=== PATIENT | male | born 1990 | race Caucasian/White ===

== ENCOUNTER 2021-07-26 16:32 | Inpatient (IN) | payer OTHER ==
[~2021-07-26] VITALS: Ht 180.3 cm; Wt 109.8 kg
[2021-07-26] MEDS ORDERED: normal saline 1000ML IV soln IVB ONE (16:55)
[2021-07-26] MEDS ORDERED: CefTRIAXone 2gm/D5W 50ml BAG 50 ML IV ONE (16:55)
[2021-07-26] MEDS ORDERED: morphine 4 MG/ML inj SYRINge IV ONE (16:55)
[2021-07-26] MEDS ORDERED: furosemide 10 MG/1 ML 10ml inj IV ONE (16:55)
[2021-07-26 17:39] LABS: BASOPHILS % (AUTO) 0.2 % (0-1); EOSINOPHILS % (AUTO) 0.2 % (0-6); HEMATOCRIT 22.3 % (42.0-52.0); HEMOGLOBIN 7.6 g/dl (14.0-17.9); LYMPHOCYTES % (AUTO) 7.4 % (21-51); MEAN CORPUSCULAR HEMOGLOBIN 33.6 PG (27.0-31.0); MEAN CORPUSCULAR VOLUME 98.6 FL (78-98); MEAN PLATELET VOLUME 7.5 FL (7.4-10.4); MONOCYTES # (AUTO) 2.3 X10'3 (0-0.9); MONOCYTES % (AUTO) 16.9 % (2-12); NEUTROPHILS # (AUTO) 10.4 X10'3 (1.8-7.7); NEUTROPHILS % (AUTO) 75.3 % (42-75); PLATELET COUNT 80 X10'3 (140-440); RED BLOOD COUNT 2.26 X10'6 (4.70-6.10); RED CELL DISTRIBUTION WIDTH 22.8 % (11.5-14.5); WHITE BLOOD COUNT 13.9 X10'3 (4.5-11.0)
[2021-07-26 17:59] LABS: LACTIC SEPSIS 2.9 MMOL/L (0.4-2.0)
[2021-07-26 18:16] LABS: ALANINE AMINOTRANSFERASE 50 U/L (12-78); ALBUMIN 2.2 G/DL (3.4-5.0); ALKALINE PHOSPHATASE 184 IU/L (46-116); ANION GAP 9 (8-16); ASPARTATE AMINO TRANSFERASE 97 U/L (10-37); BILIRUBIN,TOTAL 9.2 MG/DL (0.1-1.0); BLOOD UREA NITROGEN 24 MG/DL (7-18); BUN/CREATININE RATIO 20.3 (5.4-32.0); CHLORIDE 96 MMOL/L (99-107); CREATININE 1.18 MG/DL (0.60-1.10); POTASSIUM 4.7 MMOL/L (3.5-5.1); SODIUM 129 MMOL/L (135-145); TOTAL CARBON DIOXIDE 24.1 MMOL/L (24-32); eGFR 72 ML/MIN
[2021-07-26 18:22] LABS: ANISOCYTOSIS 3+; PLATELET ESTIMATE DECREASED; TOTAL CELLS COUNTED 100
[2021-07-26 18:24] LABS: ACANTHOCYTES 3+
[2021-07-26 18:25] LABS: ELLIPTOCYTES 2+; SCHISTOCYTES 1+; TEAR DROP CELLS FEW
[2021-07-26 18:39] LABS: ALBUMIN/GLOBULIN RATIO 0.6 (1.1-1.5); CALCIUM 8.2 MG/DL (8.5-10.1); TOTAL PROTEIN 5.9 G/DL (6.4-8.2)
[2021-07-26 18:40] LABS: GLUCOSE 102 MG/DL (70-104)
--- NOTE | 2021-07-26 20:05 | NUR ---
Consulted with Willem BARTH regarding fluids. Advised to only give 500 mL versus 1000mL.
[2021-07-26 20:41] LABS: CLARITY,URINE CLEAR (Clear); GLUCOSE, URINE NEGATIVE (Neg); KETONES,URINE NEGATIVE (Neg); LEUKOCYTE ESTERASE ,URINE NEGATIVE (Neg); NITRITES, URINE NEGATIVE (Neg); OCCULT BLOOD,URINE NEGATIVE (Neg); PROTEIN,URINE NEGATIVE (Neg)
[2021-07-26 20:50] LABS: COLOR,URINE DARK YELLOW (Yellow); UA COLLECTION TYPE URINAL
[2021-07-26] MEDS ORDERED: LIDOcaine 1% w/epiNEPHrine 1:200,000 30ml vial IM ONE (22:05)
[2021-07-26] MEDS ORDERED: LIDOcaine 1% W/epiNEPHrine 1:100,000 20ml vial IJ ONE (22:10)
--- NOTE | 2021-07-26 22:31 | NUR ---
2 LITERS TAKEN OFF DURING PARACENTESIS.
[2021-07-26] MEDS ORDERED: albumin (human) 25% 100ml IV 100 ML IV ONE (23:15)
[2021-07-26 23:30] LABS: GLUCOSE,BODY FLUID 110 MG/DL
[2021-07-26 23:45] LABS: TOTAL PROTEIN,BODY FLUID < 2.0 G/DL
[2021-07-27] VITALS (23 sets, daily range): BP systolic 93–137; BP diastolic 45–75
[2021-07-27 00:08] LABS: BF RBC COUNT 109 /CU MM; BF WBC COUNT 60 /CU MM (0-1000); BFAPPEAR HAZY; BFCOLOR YELLOW; BFVOLUME 10 ML; LYMPHOCYTES,BODY FLUID 30 %; NEUTROPHILS,BODY FLUID 18 %
[2021-07-27 00:09] LABS: MONOCYTES,BODY FLUID 52 %
[2021-07-27] MEDS ORDERED: albumin (human) 25% 100ml IV 100 ML IV ONE (00:45)
[2021-07-27] MEDS ORDERED: vancomycin/NS 1 GM ADD-VANTAGE 250 ML IV ONE (01:10)
[2021-07-27 02:27] LABS: BF MESOTHELIAL CELLS FEW
--- NOTE | 2021-07-27 03:10 | NUR ---
Received report from CURED MEATS SUPERVISOR, Pt tranferred to icu floor via berto
[2021-07-27 03:39] LABS: ABG HCO3 23.2 mmol/L (22.0-26.0); ABG PCO2 (T) 31.1 mmHg (35.0-48.0); ABG PO2 (T) 90.1 mmHg (75.0-100.0); ALLEN'S TEST Yes; FCOHb 0.6 % (0.0-3.9); FMetHb 0.3 % (0.0-1.5); FO2Hb 96.1 % (94-97); PATIENT TEMPERATURE 36.8; TOTAL HEMOGLOBIN 8.2 G/dl (14.0-18.0)
[2021-07-27 04:39] LABS: BASOPHILS # (AUTO) 0.2 X10'3 (0-0.2); BASOPHILS % (AUTO) 1.5 % (0-1); EOSINOPHILS # (AUTO) 0.1 X10'3 (0-0.9); EOSINOPHILS % (AUTO) 1.2 % (0-6); LYMPHOCYTES # (AUTO) 1.5 X10'3 (1.1-4.8); LYMPHOCYTES % (AUTO) 14.8 % (21-51); MEAN CORPUSCULAR HEMOGLOBIN 34.1 PG (27.0-31.0); MEAN CORPUSCULAR HGB CONC 34.7 g/dL (33.0-36.5); MEAN CORPUSCULAR VOLUME 98.2 FL (78-98); MEAN PLATELET VOLUME 6.9 FL (7.4-10.4); MONOCYTES # (AUTO) 1.6 X10'3 (0-0.9); MONOCYTES % (AUTO) 15.1 % (2-12); NEUTROPHILS # (AUTO) 6.9 X10'3 (1.8-7.7); NEUTROPHILS % (AUTO) 67.4 % (42-75); PLATELET COUNT 71 X10'3 (140-440); RED BLOOD COUNT 2.34 X10'6 (4.70-6.10); RED CELL DISTRIBUTION WIDTH 23.1 % (11.5-14.5); WHITE BLOOD COUNT 10.3 X10'3 (4.5-11.0)
[2021-07-27 04:55] LABS: ALANINE AMINOTRANSFERASE 49 U/L (12-78); ALBUMIN 2.7 G/DL (3.4-5.0); ALKALINE PHOSPHATASE 168 IU/L (46-116); ANION GAP 8 (8-16); ASPARTATE AMINO TRANSFERASE 90 U/L (10-37); BLOOD UREA NITROGEN 25 MG/DL (7-18); CALCIUM 8.3 MG/DL (8.5-10.1); CHLORIDE 98 MMOL/L (99-107); CREATININE 1.19 MG/DL (0.60-1.10); POTASSIUM 4.6 MMOL/L (3.5-5.1); SODIUM 132 MMOL/L (135-145); TOTAL CARBON DIOXIDE 26.1 MMOL/L (24-32); eGFR 71 ML/MIN
[2021-07-27 05:00] LABS: APTT 48 SECONDS (22-32)
[2021-07-27 05:12] LABS: ALBUMIN/GLOBULIN RATIO 0.8 (1.1-1.5); BILIRUBIN,DIRECT 5.8 MG/DL (0-0.3); GLUCOSE 86 MG/DL (70-104); PHOSPHORUS 4.7 MG/DL (2.3-4.5); TOTAL PROTEIN 6.3 G/DL (6.4-8.2)
--- NOTE | 2021-07-27 06:00 | NUR ---
Patient in room ICU 2040. I have received report from Phillip PAUL and had the opportunity to ask questions and assume patient care.
[2021-07-27] MEDS ORDERED: lactulose 20gm/30ml cup PO ONE ×2 (08:00→10:14)
[2021-07-27] MEDS ORDERED: LIDOcaine 1% 30ml preserv. free vial ONE (08:00)
[2021-07-27] MEDS: pantoprazole 40MG/NS 100ML BAG 100 ML IV SCH (09:10)
[2021-07-27] MEDS: rifaximin 550mg tablet PO SCH ×2 (09:38→20:19)
[2021-07-27] MEDS ORDERED: furosemide 40mg/4ml inj IV ONE (09:49)
[2021-07-27] MEDS ORDERED: spironolactone 25 MG tablet PO SCH (09:50)
[2021-07-27] MEDS: CEFEPIME 2gm in D5W 50mL 50 ML IV SCH ×2 (10:14→21:02)
--- NOTE | 2021-07-27 11:00 | NUR ---
Pt had paracentesis at bedside with IR and 8800ml was reported to be taken off. Pt tolerated procedure well.
[2021-07-27] MEDS: albumin (human) 25% 100 ML IV solution IV SCH ×2 (11:29→19:50)
[2021-07-27] MEDS ORDERED: albumin (human) 25% 100 ML IV solution IV ONE (11:35)
[2021-07-27] MEDS ORDERED: MAGN400T39 PO (11:40)
[2021-07-27] MEDS ORDERED: [UNRECOGNIZED DRUG - CODE] PO (11:40)
[2021-07-27] MEDS ORDERED: OMEP40CA21 PO (11:40)
[2021-07-27] MEDS ORDERED: FOLI0.4T6 PO (11:40)
[2021-07-27] MEDS ORDERED: HYDR-3686 PO ×2 (11:40→12:15)
[2021-07-27] MEDS ORDERED: THIA50TA10 PO (11:40)
[2021-07-27] MEDS ORDERED: SERT25TA PO (11:40)
[2021-07-27] MEDS ORDERED: ONDA4TAB12 PO (11:40)
[2021-07-27] MEDS ORDERED: SPIR50TA5 PO (11:40)
[2021-07-27] MEDS ORDERED: AMIT-189 PO (11:40)
[2021-07-27] MEDS ORDERED: FURO-150 PO (11:40)
[2021-07-27] MEDS ORDERED: LACT10SO3 PO (11:40)
[2021-07-27] MEDS ORDERED: GABA300C PO (11:40)
[2021-07-27] MEDS ORDERED: MECO10005 PO (11:40)
[2021-07-27] MEDS ORDERED: SUMA25TA35 PO (11:40)
[2021-07-27] MEDS ORDERED: ondansetron 4mg rapidly disintigrating tab PO PRN (12:15)
[2021-07-27] MEDS ORDERED: SUMAtriptan 25 MG tablet PO PRN (12:15)
[2021-07-27] MEDS ORDERED: SUMA25TA9 PO (12:15)
[2021-07-27] MEDS ORDERED: hydrOXYzine 25 MG tablet PO PRN (12:15)
[2021-07-27] MEDS: multivitamins, therapeutics tablet PO SCH (12:54)
[2021-07-27] MEDS: propranolol 10mg tablet PO SCH ×2 (14:03→20:19)
--- NOTE | 2021-07-27 14:33 | NUR ---
Initial: Pt admit DX severe sepsis, decompensated etoh cirrhosis, and massive ascites s/p paracentesis -2L 3/3 per EMR w/ paracentesis -8.8L this AM per RN. Pt hx etoh though now sober 5 months per EMR. Pt initially NPO w/ serum Na 132mmol/L this AM up from 129mmol/L on admit now advanced to Na-restricted diet given DX per warehouse guard. Pearl Restorer is agreeable to MVI supplementation given liver status. Per RN, pt requests to see RD regarding diet preferences. Pt seen at bedside by RD and reports dislikes milk to drink; requests juice TIDWM and sherbet vs romansh ice BIDLD. Dietary notified of preferences. Ammonia 34 this AM receiving routine lactulose w/ LBM 3/3 per EMR. Will monitor for PO trends and further nutrition intervention needs this admit. Rec: 1. continue Na-restricted diet per MD; honor pt food preferences 2. monitor for PO trends and ONS needs 3. routine bowel regimen per warehouse guard; receiving lactulose Q8 per EMR 4. scaled wt this admit; subsequent weekly wts Addendum: 07/27/21 at [address] Amended: Links added.
[2021-07-27] MEDS: gabapentin 300mg capsule PO SCH ×2 (15:15→23:57)
[2021-07-27] MEDS: lactulose 20gm/30ml cup PO SCH ×2 (15:15→23:57)
[2021-07-27] MEDS ORDERED: lactulose 20gm/30ml cup PO SCH (16:00)
--- NOTE | 2021-07-27 18:31 | NUR ---
Problems reprioritized. Patient report given, questions answered & plan of care reviewed with Sun PAUL.
[2021-07-27] MEDS: VANCOMYCIN 1GM/200ML IVPB 200 ML IV SCH (19:29)
[2021-07-27] MEDS: furosemide 20MG tablet PO SCH (20:00)
[2021-07-27] MEDS: spironolactone 50 MG tablet PO SCH (20:00)
[2021-07-27] MEDS: furosemide 40mg/4ml inj IV SCH (20:19)
[2021-07-27] MEDS: amitriptyline 50mg tablet PO SCH (20:19)
[2021-07-27] MEDS: magnesium oxide 400mg tablet PO SCH (20:19)
--- NOTE | 2021-07-27 23:34 | NUR ---
Called Dr. Hu to clarify lasix 40mg PO and lasix 40mg IV. Fritz said to hold lasix 40mg PO and give lasix 40mg IV. In addition Dr. Hu said to hold spironolactore for tonight. Current blood pressure is 96/65. Will continue to monitor.
[2021-07-28] VITALS (24 sets, daily range): BP systolic 89–115; BP diastolic 38–64
[2021-07-28] MEDS: VANCOMYCIN 1GM/200ML IVPB 200 ML IV SCH ×3 (02:57→20:17)
[2021-07-28 06:10] LABS: BASOPHILS % (AUTO) 0.4 % (0-1); EOSINOPHILS # (AUTO) 0.1 X10'3 (0-0.9); EOSINOPHILS % (AUTO) 2.5 % (0-6); HEMOGLOBIN 7.3 g/dl (14.0-17.9); LYMPHOCYTES % (AUTO) 23.2 % (21-51); MEAN CORPUSCULAR HEMOGLOBIN 33.6 PG (27.0-31.0); MEAN CORPUSCULAR HGB CONC 34.6 g/dL (33.0-36.5); MEAN CORPUSCULAR VOLUME 97.2 FL (78-98); MEAN PLATELET VOLUME 6.8 FL (7.4-10.4); MONOCYTES # (AUTO) 0.9 X10'3 (0-0.9); MONOCYTES % (AUTO) 19.2 % (2-12); NEUTROPHILS # (AUTO) 2.5 X10'3 (1.8-7.7); NEUTROPHILS % (AUTO) 54.7 % (42-75); PLATELET COUNT 56 X10'3 (140-440); RED BLOOD COUNT 2.16 X10'6 (4.70-6.10); RED CELL DISTRIBUTION WIDTH 22.2 % (11.5-14.5); WHITE BLOOD COUNT 4.5 X10'3 (4.5-11.0)
[2021-07-28 06:17] LABS: ALANINE AMINOTRANSFERASE 36 U/L (12-78); ALBUMIN 2.7 G/DL (3.4-5.0); ALKALINE PHOSPHATASE 126 IU/L (46-116); ANION GAP 6 (8-16); ASPARTATE AMINO TRANSFERASE 70 U/L (10-37); BILIRUBIN,TOTAL 8.6 MG/DL (0.1-1.0); BLOOD UREA NITROGEN 24 MG/DL (7-18); CALCIUM 8.2 MG/DL (8.5-10.1); CHLORIDE 100 MMOL/L (99-107); CREATININE 0.89 MG/DL (0.60-1.10); MAGNESIUM 2.2 MG/DL (1.5-2.4); POTASSIUM 4.3 MMOL/L (3.5-5.1); SODIUM 135 MMOL/L (135-145); TOTAL CARBON DIOXIDE 29.1 MMOL/L (24-32); eGFR > 90 ML/MIN
[2021-07-28 06:31] LABS: GLUCOSE 88 MG/DL (70-104); PHOSPHORUS 3.6 MG/DL (2.3-4.5); TOTAL PROTEIN 5.3 G/DL (6.4-8.2)
[2021-07-28 06:53] LABS: ANISOCYTOSIS 3+; PLATELET ESTIMATE DECREASED; TOTAL CELLS COUNTED 100
[2021-07-28 06:54] LABS: ACANTHOCYTES 1+; POLYCHROMASIA FEW; SCHISTOCYTES FEW
[2021-07-28] MEDS: furosemide 20MG tablet PO SCH ×2 (06:56→20:19)
[2021-07-28] MEDS: propranolol 10mg tablet PO SCH ×2 (08:00→20:25)
[2021-07-28] MEDS ORDERED: non-formulary drug (Omeprazole (Prilosec) 1 CAP) PO SCH (08:00)
[2021-07-28] MEDS: pantoprazole 40MG/NS 100ML BAG 100 ML IV SCH (08:59)
[2021-07-28] MEDS: CEFEPIME 2gm in D5W 50mL 50 ML IV SCH ×2 (08:59→20:14)
[2021-07-28] MEDS: lactulose 20gm/30ml cup PO SCH (08:59)
[2021-07-28] MEDS: albumin (human) 25% 100 ML IV solution IV SCH ×2 (09:00→20:36)
[2021-07-28] MEDS: gabapentin 300mg capsule PO SCH ×3 (09:01→23:01)
[2021-07-28] MEDS: thiamine 100mg tablet PO SCH (09:01)
[2021-07-28] MEDS: folic acid 0.4mg tablet PO SCH (09:01)
[2021-07-28] MEDS: magnesium oxide 400mg tablet PO SCH ×2 (09:01→20:19)
[2021-07-28] MEDS: multivitamins, therapeutics tablet PO SCH (09:04)
[2021-07-28] MEDS: rifaximin 550mg tablet PO SCH ×2 (09:04→20:21)
[2021-07-28] MEDS: sertraline 50mg tablet PO SCH (09:04)
[2021-07-28] MEDS: furosemide 40mg/4ml inj IV SCH ×2 (09:04→20:19)
[2021-07-28] MEDS: spironolactone 50 MG tablet PO SCH ×2 (09:05→20:19)
[2021-07-28] MEDS ORDERED: VANCOMYCIN LEVEL IV ONE (18:30)
[2021-07-28] MEDS ORDERED: OMEP20CA15 PO (18:41)
[2021-07-28] MEDS ORDERED: CYAN-51 PO (18:41)
[2021-07-28] MEDS ORDERED: SERT150C PO (18:41)
[2021-07-28] MEDS ORDERED: MULT-1219 PO (18:41)
[2021-07-28] MEDS ORDERED: FOLI1TAB27 PO (18:41)
[2021-07-28] MEDS: amitriptyline 50mg tablet PO SCH (20:24)
--- NOTE | 2021-07-29 00:22 | NUR ---
Report called to receiving nurse Iraida PAUL. Tele box #[id number] placed on the patient. Transferred via wheelchair. Belongings taken to room 3015. Special Issues communicated to receiving nurse.
--- NOTE | 2021-07-29 00:25 | NUR ---
Patient in room PCU 3015. I have received report from HUMBERTO Sarabia and had the opportunity to ask questions and assume patient care.
--- NOTE | 2021-07-29 00:45 | NUR ---
Patient arrived to the unit via wheelchair with the nurse. No acute distress noted. Denies any pain or discomfort at this time. Snacks given as requested, tolerated well. Dx: Abdominal pain, Cirrhosis, ETOH. Hx: COVID (+), ETOH, falls, Right side paracentesis.
[2021-07-29] MEDS: VANCOMYCIN 1GM/200ML IVPB 200 ML IV SCH ×3 (04:30→19:36)
[2021-07-29 06:00] VITALS: BP 107/57
--- NOTE | 2021-07-29 06:35 | NUR ---
Problems reprioritized. Patient report given, questions answered & plan of care reviewed with Kia RN.
[2021-07-29] MEDS: pantoprazole 40MG/NS 100ML BAG 100 ML IV SCH (08:00)
[2021-07-29] MEDS: furosemide 40mg/4ml inj IV SCH (08:00)
[2021-07-29] MEDS: albumin (human) 25% 100 ML IV solution IV SCH (08:38)
[2021-07-29] MEDS: CEFEPIME 2gm in D5W 50mL 50 ML IV SCH ×2 (08:39→19:36)
[2021-07-29] MEDS: gabapentin 300mg capsule PO SCH ×2 (08:40→16:00)
[2021-07-29] MEDS: propranolol 10mg tablet PO SCH ×3 (08:42→20:51)
[2021-07-29] MEDS: magnesium oxide 400mg tablet PO SCH ×2 (08:42→19:36)
[2021-07-29] MEDS: folic acid 0.4mg tablet PO SCH (08:42)
[2021-07-29] MEDS: spironolactone 50 MG tablet PO SCH ×2 (08:43→19:36)
[2021-07-29] MEDS: thiamine 100mg tablet PO SCH (08:43)
[2021-07-29] MEDS: multivitamins, therapeutics tablet PO SCH (08:43)
[2021-07-29] MEDS: sertraline 50mg tablet PO SCH (08:43)
[2021-07-29 09:38] LABS: BASOPHILS % (AUTO) 0.3 % (0-1); EOSINOPHILS # (AUTO) 0.1 X10'3 (0-0.9); EOSINOPHILS % (AUTO) 2.4 % (0-6); HEMOGLOBIN 7.3 g/dl (14.0-17.9); LYMPHOCYTES % (AUTO) 27.8 % (21-51); MEAN CORPUSCULAR HEMOGLOBIN 34.2 PG (27.0-31.0); MEAN CORPUSCULAR HGB CONC 34.5 g/dL (33.0-36.5); MEAN CORPUSCULAR VOLUME 99.1 FL (78-98); MEAN PLATELET VOLUME 7.2 FL (7.4-10.4); MONOCYTES # (AUTO) 0.6 X10'3 (0-0.9); MONOCYTES % (AUTO) 17.6 % (2-12); NEUTROPHILS # (AUTO) 1.9 X10'3 (1.8-7.7); NEUTROPHILS % (AUTO) 51.9 % (42-75); PLATELET COUNT 53 X10'3 (140-440); RED BLOOD COUNT 2.14 X10'6 (4.70-6.10); RED CELL DISTRIBUTION WIDTH 21.8 % (11.5-14.5); WHITE BLOOD COUNT 3.6 X10'3 (4.5-11.0)
[2021-07-29 09:45] LABS: HEMATOCRIT 21.2 % (42.0-52.0)
[2021-07-29 11:00] VITALS: BP 99/56
[2021-07-29 11:23] LABS: ALANINE AMINOTRANSFERASE 37 U/L (12-78); ALBUMIN 2.8 G/DL (3.4-5.0); ALKALINE PHOSPHATASE 139 IU/L (46-116); ASPARTATE AMINO TRANSFERASE 75 U/L (10-37); BILIRUBIN,TOTAL 7.5 MG/DL (0.1-1.0); BLOOD UREA NITROGEN 25 MG/DL (7-18); BUN/CREATININE RATIO 28.1 (5.4-32.0); CALCIUM 7.6 MG/DL (8.5-10.1); CREATININE 0.89 MG/DL (0.60-1.10); GLUCOSE 115 MG/DL (70-104); TOTAL CARBON DIOXIDE 26.2 MMOL/L (24-32); TOTAL PROTEIN 5.7 G/DL (6.4-8.2); eGFR > 90 ML/MIN
[2021-07-29] MEDS: rifaximin 550mg tablet PO SCH ×2 (12:43→19:36)
[2021-07-29] MEDS: furosemide 20MG tablet PO SCH ×2 (12:44→19:36)
--- NOTE | 2021-07-29 17:00 | NUR ---
shift report: Alert, Orientedx4, HRR, Resp even and unlabored, Skin warm to touch, color jaundiced. Abd distended with pinhole site with large amounts of clear yellow drainage noted, Dressing to abd pinhole site changed x4-5times this shift.patient denies pain this shift. repositioned for comfort. Pt Ambulated using walker with 1person assist to bathroom, x1 BM this shift(stated), flushed-unwitnessed.Skin above buttock with large ecchymotic area noted. Patient gate unsteady, Instructed to call for any assistance out of bed.IV intact without complications-flushed well.Telemetry in use.Will note any changes.
[2021-07-29 18:00] VITALS: BP 106/57
--- NOTE | 2021-07-29 18:32 | NUR ---
Patient in room PCU 3018B. I have received report from HUMBERTO Adam and had the opportunity to ask questions and assume patient care.
[2021-07-29] MEDS: amitriptyline 50mg tablet PO SCH (20:51)
[2021-07-29 22:00] VITALS: BP 95/53
[2021-07-30] VITALS (8 sets, daily range): BP systolic 86–110; BP diastolic 46–63
[2021-07-30] MEDS: gabapentin 300mg capsule PO SCH ×3 (00:35→15:27)
[2021-07-30] MEDS: VANCOMYCIN 1GM/200ML IVPB 200 ML IV SCH ×3 (03:53→20:21)
--- NOTE | 2021-07-30 06:23 | NUR ---
Problems reprioritized. Patient report given, questions answered & plan of care reviewed with Kia RN.
[2021-07-30 07:01] LABS: BASOPHILS % (AUTO) 0.3 % (0-1); EOSINOPHILS # (AUTO) 0.1 X10'3 (0-0.9); EOSINOPHILS % (AUTO) 2.1 % (0-6); HEMOGLOBIN 7.4 g/dl (14.0-17.9); LYMPHOCYTES # (AUTO) 0.8 X10'3 (1.1-4.8); LYMPHOCYTES % (AUTO) 19.9 % (21-51); MEAN CORPUSCULAR HEMOGLOBIN 34.2 PG (27.0-31.0); MEAN CORPUSCULAR HGB CONC 34.4 g/dL (33.0-36.5); MEAN CORPUSCULAR VOLUME 99.3 FL (78-98); MEAN PLATELET VOLUME 7.1 FL (7.4-10.4); MONOCYTES # (AUTO) 0.8 X10'3 (0-0.9); MONOCYTES % (AUTO) 19.8 % (2-12); NEUTROPHILS # (AUTO) 2.5 X10'3 (1.8-7.7); NEUTROPHILS % (AUTO) 57.9 % (42-75); RED BLOOD COUNT 2.17 X10'6 (4.70-6.10); RED CELL DISTRIBUTION WIDTH 21.9 % (11.5-14.5); WHITE BLOOD COUNT 4.3 X10'3 (4.5-11.0)
[2021-07-30 07:15] LABS: HEMATOCRIT 21.5 % (42.0-52.0); PLATELET COUNT 50 X10'3 (140-440)
[2021-07-30 07:41] LABS: ALANINE AMINOTRANSFERASE 36 U/L (12-78); ALBUMIN 2.9 G/DL (3.4-5.0); ALKALINE PHOSPHATASE 140 IU/L (46-116); ANION GAP 7 (8-16); ASPARTATE AMINO TRANSFERASE 81 U/L (10-37); BILIRUBIN,TOTAL 8.2 MG/DL (0.1-1.0); BLOOD UREA NITROGEN 25 MG/DL (7-18); BUN/CREATININE RATIO 27.2 (5.4-32.0); CALCIUM 7.8 MG/DL (8.5-10.1); CHLORIDE 99 MMOL/L (99-107); CREATININE 0.92 MG/DL (0.60-1.10); POTASSIUM 4.2 MMOL/L (3.5-5.1); SODIUM 133 MMOL/L (135-145); TOTAL CARBON DIOXIDE 27.5 MMOL/L (24-32); eGFR > 90 ML/MIN
[2021-07-30 07:47] LABS: ALBUMIN/GLOBULIN RATIO 0.9 (1.1-1.5); GLUCOSE 83 MG/DL (70-104); TOTAL PROTEIN 6.1 G/DL (6.4-8.2)
[2021-07-30 08:57] LABS: POTASSIUM 3.8 MMOL/L (3.3-5.1)
[2021-07-30] MEDS: CEFEPIME 2gm in D5W 50mL 50 ML IV SCH ×2 (09:17→20:21)
[2021-07-30] MEDS: propranolol 10mg tablet PO SCH ×3 (09:18→21:00)
[2021-07-30] MEDS: furosemide 20MG tablet PO SCH ×2 (09:19→20:00)
[2021-07-30] MEDS: thiamine 100mg tablet PO SCH (09:19)
[2021-07-30] MEDS: magnesium oxide 400mg tablet PO SCH ×2 (09:19→20:22)
[2021-07-30] MEDS: spironolactone 50 MG tablet PO SCH ×2 (09:19→20:00)
[2021-07-30] MEDS: folic acid 0.4mg tablet PO SCH (09:20)
[2021-07-30] MEDS: sertraline 50mg tablet PO SCH (09:20)
[2021-07-30] MEDS: multivitamins, therapeutics tablet PO SCH (09:21)
[2021-07-30] MEDS: rifaximin 550mg tablet PO SCH ×2 (09:24→20:22)
[2021-07-30] MEDS: pantoprazole 40MG/NS 100ML BAG 100 ML IV SCH (09:25)
--- NOTE | 2021-07-30 10:08 | NUR ---
Reassessment: Pt PO ~100% avg meals meeting kcal and partially meeting protein needs given DX in EMR. Double proteins BIDLD added for satiety; dietary notified. Continues to receive thiamine, folic acid, MVI for etoh hx and cirrhosis per EMR. LBM 07/29. Will continue to monitor for further nutrition intervention needs. Rec: 1. continue Na-restricted diet per MD; honor pt food preferences 2. double proteins BIDLD for satiety 3. routine bowel care per MD 4. scaled wt this admit; subsequent weekly wts Addendum: 07/30/21 at [address] Amended: Links added.
[2021-07-30 15:40] LABS: ANION GAP 8 (8-16); CHLORIDE 99 MMOL/L (99-107); POTASSIUM 3.8 MMOL/L (3.5-5.1); SODIUM 133 MMOL/L (135-145)
--- NOTE | 2021-07-30 18:15 | NUR ---
Patient in room PCU 3015. I have received report from HUMBERTO Adam and had the opportunity to ask questions and assume patient care.
[2021-07-30] MEDS: amitriptyline 50mg tablet PO SCH (20:22)
[2021-07-31] MEDS: gabapentin 300mg capsule PO SCH ×3 (00:14→17:29)
[2021-07-31] MEDS: VANCOMYCIN 1GM/200ML IVPB 200 ML IV SCH ×3 (03:04→20:03)
[2021-07-31 06:00] VITALS: BP 86/46
--- NOTE | 2021-07-31 06:34 | NUR ---
Problems reprioritized. Patient report given, questions answered & plan of care reviewed with Kia RN.
[2021-07-31] MEDS: multivitamins, therapeutics tablet PO SCH (07:59)
[2021-07-31] MEDS: spironolactone 50 MG tablet PO SCH ×2 (07:59→20:04)
[2021-07-31] MEDS: propranolol 10mg tablet PO SCH ×3 (08:00→20:05)
[2021-07-31] MEDS: thiamine 100mg tablet PO SCH (08:01)
[2021-07-31] MEDS: folic acid 0.4mg tablet PO SCH (08:01)
[2021-07-31] MEDS: sertraline 50mg tablet PO SCH (08:01)
[2021-07-31] MEDS: magnesium oxide 400mg tablet PO SCH ×2 (08:02→20:05)
[2021-07-31] MEDS: rifaximin 550mg tablet PO SCH ×2 (08:03→20:07)
[2021-07-31] MEDS: pantoprazole 40MG/NS 100ML BAG 100 ML IV SCH (08:04)
[2021-07-31] MEDS: CEFEPIME 2gm in D5W 50mL 50 ML IV SCH ×2 (08:04→20:03)
[2021-07-31] MEDS: furosemide 20MG tablet PO SCH ×2 (08:05→20:04)
[2021-07-31 11:00] VITALS: BP 102/49
[2021-07-31 11:21] LABS: BASOPHILS % (AUTO) 0.3 % (0-1); EOSINOPHILS # (AUTO) 0.1 X10'3 (0-0.9); EOSINOPHILS % (AUTO) 1.9 % (0-6); HEMATOCRIT 22.4 % (42.0-52.0); HEMOGLOBIN 7.6 g/dl (14.0-17.9); LYMPHOCYTES # (AUTO) 0.9 X10'3 (1.1-4.8); LYMPHOCYTES % (AUTO) 16.7 % (21-51); MEAN CORPUSCULAR HGB CONC 34.1 g/dL (33.0-36.5); MEAN CORPUSCULAR VOLUME 99.6 FL (78-98); MEAN PLATELET VOLUME 7.3 FL (7.4-10.4); MONOCYTES # (AUTO) 1.1 X10'3 (0-0.9); MONOCYTES % (AUTO) 19.7 % (2-12); NEUTROPHILS # (AUTO) 3.5 X10'3 (1.8-7.7); NEUTROPHILS % (AUTO) 61.4 % (42-75); PLATELET COUNT 51 X10'3 (140-440); RED BLOOD COUNT 2.25 X10'6 (4.70-6.10); RED CELL DISTRIBUTION WIDTH 21.2 % (11.5-14.5); WHITE BLOOD COUNT 5.6 X10'3 (4.5-11.0)
--- NOTE | 2021-07-31 14:42 | NUR ---
Per PT-Patient walked, very unstable and high fall risk and do not recommend discharge to home alone on today, they will try again to work with him tomorrow. notified.
--- NOTE | 2021-07-31 14:51 | NUR ---
Discharged. Discharge teaching/instructions given to pt and spouse, teaching regarding Incisional care. Prevena incision management wound vac removed-Incision well proximate, small area mid incision with small amount of red drainage noted, 2x2 gauge using paper tape(not on incisonal area) applied.Instructed the importance of follow-up appt post surgery. IV discontinued-site without complication, telemetry removed.Received called from [facility] stating patient showing Covid positive,Dr. Chakraborty notified, patient and spouse informed-Covid Teaching(Pt denies COVID symptoms) provided for Safety, Unit Charge Nurse made aware and Employee Health informed.Patient taken to private vehicle(wearing a mask) in a wheel chair.
[2021-07-31 15:00] VITALS: BP 95/56
[2021-07-31 18:00] VITALS: BP 102/49
[2021-07-31] MEDS: amitriptyline 50mg tablet PO SCH (20:04)
[2021-07-31 22:00] VITALS: BP 101/60
[2021-08-01] MEDS: gabapentin 300mg capsule PO SCH ×3 (00:41→16:27)
[2021-08-01 02:00] VITALS: BP 102/51
[2021-08-01] MEDS: VANCOMYCIN 1GM/200ML IVPB 200 ML IV SCH (02:55)
[2021-08-01 06:00] VITALS: BP 113/59
[2021-08-01 07:10] LABS: BASOPHILS # (AUTO) 0.1 X10'3 (0-0.2); BASOPHILS % (AUTO) 0.9 % (0-1); EOSINOPHILS # (AUTO) 0.1 X10'3 (0-0.9); HEMOGLOBIN 8.6 g/dl (14.0-17.9); LYMPHOCYTES # (AUTO) 1.3 X10'3 (1.1-4.8); LYMPHOCYTES % (AUTO) 16.8 % (21-51); MEAN CORPUSCULAR HEMOGLOBIN 34.6 PG (27.0-31.0); MEAN CORPUSCULAR HGB CONC 34.5 g/dL (33.0-36.5); MEAN CORPUSCULAR VOLUME 100.2 FL (78-98); MEAN PLATELET VOLUME 7.6 FL (7.4-10.4); MONOCYTES # (AUTO) 1.2 X10'3 (0-0.9); MONOCYTES % (AUTO) 15.9 % (2-12); NEUTROPHILS # (AUTO) 4.9 X10'3 (1.8-7.7); NEUTROPHILS % (AUTO) 64.4 % (42-75); PLATELET COUNT 63 X10'3 (140-440); RED CELL DISTRIBUTION WIDTH 21.4 % (11.5-14.5); WHITE BLOOD COUNT 7.6 X10'3 (4.5-11.0)
[2021-08-01 07:29] LABS: ALANINE AMINOTRANSFERASE 39 U/L (12-78); ALKALINE PHOSPHATASE 184 IU/L (46-116); ANION GAP 8 (8-16); ASPARTATE AMINO TRANSFERASE 90 U/L (10-37); BILIRUBIN,TOTAL 8.7 MG/DL (0.1-1.0); BLOOD UREA NITROGEN 35 MG/DL (7-18); BUN/CREATININE RATIO 35.7 (5.4-32.0); CHLORIDE 98 MMOL/L (99-107); CREATININE 0.98 MG/DL (0.60-1.10); POTASSIUM 4.4 MMOL/L (3.5-5.1); SODIUM 132 MMOL/L (135-145); TOTAL CARBON DIOXIDE 25.6 MMOL/L (24-32); eGFR 89 ML/MIN
[2021-08-01 07:34] LABS: ALBUMIN/GLOBULIN RATIO 0.9 (1.1-1.5); GLUCOSE 86 MG/DL (70-104); TOTAL PROTEIN 6.3 G/DL (6.4-8.2)
[2021-08-01 08:07] LABS: ANISOCYTOSIS 3+; PLATELET ESTIMATE DECREASED; SCHISTOCYTES FEW; TOTAL CELLS COUNTED 100
[2021-08-01 08:09] LABS: ACANTHOCYTES 2+
[2021-08-01] MEDS: CEFEPIME 2gm in D5W 50mL 50 ML IV SCH ×2 (08:11→19:49)
[2021-08-01] MEDS: pantoprazole 40MG/NS 100ML BAG 100 ML IV SCH (08:11)
[2021-08-01] MEDS: spironolactone 50 MG tablet PO SCH ×2 (08:12→19:48)
[2021-08-01] MEDS: folic acid 0.4mg tablet PO SCH (08:12)
[2021-08-01] MEDS: propranolol 10mg tablet PO SCH ×3 (08:12→19:49)
[2021-08-01] MEDS: sertraline 50mg tablet PO SCH (08:12)
[2021-08-01] MEDS: furosemide 20MG tablet PO SCH ×2 (08:13→19:48)
[2021-08-01] MEDS: multivitamins, therapeutics tablet PO SCH (08:13)
[2021-08-01] MEDS: thiamine 100mg tablet PO SCH (08:13)
[2021-08-01] MEDS: magnesium oxide 400mg tablet PO SCH ×2 (08:13→19:48)
[2021-08-01] MEDS: rifaximin 550mg tablet PO SCH ×2 (08:17→19:48)
[2021-08-01 11:00] VITALS: BP 97/48
[2021-08-01 15:00] VITALS: BP 94/52
[2021-08-01 18:00] VITALS: BP 98/62
--- NOTE | 2021-08-01 18:32 | NUR ---
Problems reprioritized. Patient report given, questions answered & plan of care reviewed with Rene PAUL.
[2021-08-01] MEDS: amitriptyline 50mg tablet PO SCH (19:48)
[2021-08-01 22:00] VITALS: BP 91/52
[2021-08-02] MEDS: gabapentin 300mg capsule PO SCH ×2 (00:19→08:58)
[2021-08-02 02:00] VITALS: BP 103/57
[2021-08-02] MEDS ORDERED: VANCOMYCIN LEVEL IV ONE (02:30)
[2021-08-02 06:00] VITALS: BP 104/49
[2021-08-02] MEDS: CEFEPIME 2gm in D5W 50mL 50 ML IV SCH (08:58)
[2021-08-02] MEDS: sertraline 50mg tablet PO SCH (08:58)
[2021-08-02] MEDS: folic acid 0.4mg tablet PO SCH (08:58)
[2021-08-02] MEDS: pantoprazole 40MG/NS 100ML BAG 100 ML IV SCH (08:58)
[2021-08-02] MEDS: furosemide 20MG tablet PO SCH (08:59)
[2021-08-02] MEDS: thiamine 100mg tablet PO SCH (08:59)
[2021-08-02] MEDS: propranolol 10mg tablet PO SCH (08:59)
[2021-08-02] MEDS: magnesium oxide 400mg tablet PO SCH (08:59)
[2021-08-02] MEDS: rifaximin 550mg tablet PO SCH (08:59)
[2021-08-02] MEDS: multivitamins, therapeutics tablet PO SCH (08:59)
[2021-08-02] MEDS: spironolactone 50 MG tablet PO SCH (08:59)
--- NOTE | 2021-08-02 09:53 | NUR ---
Reassessment: Pt s/p paracentesis 07/30 with 3250 mL fluid removed per report. Pt continues eating well, documented with 75-100% PO intake while receiving double protein BIDLD meeting estimated nutrient needs. LBM 08/01. No further nutrition intervention implemented at this time. Will continue to follow. Recommendations: 1. Continue 2 g Na-restricted diet per MD 2. Readlyn pt food preferences: No milk to drink; juice TIDWM and sherbet vs Telugu ice BIDLD 3. Double protein BIDLD for satiety 4. Bowel care PRN 5. Weekly scaled weights Addendum: 08/02/21 at [address] Amended: Links added.
[2021-08-02] MEDS ORDERED: PROP10TA10 PO ×2 (10:30)
[2021-08-02] MEDS ORDERED: CIPR-202 PO ×2 (10:30)
--- NOTE | 2021-08-02 12:30 | NUR ---
patient stable for discharge. PIV removed with catheter intact. Discharge instructions given. Patient and mother verbalized understanding. All possessions gathered. Patient transferred off unit safely via wheelchair to mother's car.
== END 2021-08-02 13:30 | disposition home health service (06) | DRG 871 ==
LOC: EDBD 16:32 → ER 16:32 → ED HOLD 07-27 01:50 → ICU 2S 07-27 02:48 → PCU 3S 07-29 00:44
PROVIDERS: ADMIT Internal Medicine Critical Care Medicine; ATTEND Internal Medicine Critical Care Medicine
PROC: 0W9G3ZX Drainage of Peritoneal Cavity, Percutaneous Approach, Diagnostic (ICD-10-PCS; 2021-07-26)
PROC: 0W9G3ZZ Drainage of Peritoneal Cavity, Percutaneous Approach (ICD-10-PCS; principal; 2021-07-27)
PROC: 0W9G3ZZ Drainage of Peritoneal Cavity, Percutaneous Approach (ICD-10-PCS; 2021-07-30)
DX: A41.9 Sepsis, unspecified organism (principal); K65.2 Spontaneous bacterial peritonitis; D68.9 Coagulation defect, unspecified; E87.4 Mixed disorder of acid-base balance; N17.9 Acute kidney failure, unspecified; K76.6 Portal hypertension; E87.1 Hypo-osmolality and hyponatremia; Z20.822 Contact with and (suspected) exposure to COVID-19; R65.20 Severe sepsis without septic shock; K70.31 Alcoholic cirrhosis of liver with ascites; D64.9 Anemia, unspecified; W18.39XA Other fall on same level, initial encounter; K72.90 Hepatic failure, unspecified without coma; D69.59 Other secondary thrombocytopenia; E66.9 Obesity, unspecified; I95.9 Hypotension, unspecified; K52.9 Noninfective gastroenteritis and colitis, unspecified; E88.09 Other disorders of plasma-protein metabolism, not elsewhere classified; F17.210 Nicotine dependence, cigarettes, uncomplicated; F32.A Depression, unspecified; F43.10 Post-traumatic stress disorder, unspecified; G43.909 Migraine, unspecified, not intractable, without status migrainosus; Z79.899 Other long term (current) drug therapy; Y93.89 Activity, other specified; Y92.89 Other specified places as the place of occurrence of the external cause; Y99.8 Other external cause status; Z68.33 Body mass index [BMI] 33.0-33.9, adult; Z71.41 Alcohol abuse counseling and surveillance of alcoholic
CPT/HCPCS: 36415; 36600; 49083; 71045; 74176; 80053; 80202; 81003; 82140; 82248; 82607; 82803; 82945; 82948; 83605; 83735; 84100; 84145; 84157; 85007; 85018; 85025; 85610; 85730; 86885; 86900; 86901; 87040; 87081; 87205; 87635; 89051; 93005; 97110; 97161; 97530; 99285; C9113; C9803; G0378; J0692; J0696; J1940; J2270; J3370; J3490; J7030; P9047; Q0177

== ENCOUNTER 2021-08-07 07:36 | Day surgery (SDC) | payer OTHER ==
[~2021-08-07] VITALS: Ht 180.3 cm; Wt 121.1 kg
[2021-08-07] VITALS (14 sets, daily range): BP systolic 98–127; BP diastolic 52–71
[~2021-08-07 07:36] MED LIST: AMIT-189 PO; CIPR-202 PO; CYAN-51 PO; FOLI1TAB27 PO; FURO-150 PO; GABA300C PO; HYDR-3686 PO; LACT10SO3 PO; MAGN400T39 PO; MULT-1219 PO; OMEP20CA15 PO; ONDA4TAB12 PO; PROP10TA10 PO; SERT150C PO; SPIR50TA5 PO; SUMA25TA9 PO; THIA50TA10 PO
[2021-08-07] MEDS ORDERED: LIDOcaine 1%/PF 5ML 10 MG/ML VIAL SQ ONE (07:40)
[2021-08-07] MEDS ORDERED: SERT-434 PO (08:14)
[2021-08-07] MEDS: albumin 25% 100mL bottle x 1 IV PRN ×3 (08:52→10:35)
== END 2021-08-07 11:40 | disposition home or self-care (01) ==
LOC: SSTAY O 07:36
PROVIDERS: ATTEND Radiology Vascular & Interventional Radiology
DX: K70.31 Alcoholic cirrhosis of liver with ascites (principal); K21.9 Gastro-esophageal reflux disease without esophagitis; F10.20 Alcohol dependence, uncomplicated; Z79.899 Other long term (current) drug therapy
CPT/HCPCS: 49083; J3490; P9047

== ENCOUNTER 2021-08-10 05:19 | Emergency (ER) | payer OTHER ==
[~2021-08-10 05:19] MED LIST changes: -FURO-150 PO; -PROP10TA10 PO; +SERT-434 PO; -SERT150C PO; -SPIR50TA5 PO
[2021-08-10] MEDS ORDERED: normal saline 1000ml 1,000 ML IV ONE (05:30)
[2021-08-10 05:55] LABS: BASOPHILS % (AUTO) 0.6 % (0-1); EOSINOPHILS # (AUTO) 0.1 X10'3 (0-0.9); LYMPHOCYTES # (AUTO) 0.6 X10'3 (1.1-4.8); MEAN CORPUSCULAR HEMOGLOBIN 35.4 PG (27.0-31.0); MEAN CORPUSCULAR HGB CONC 34.8 g/dL (33.0-36.5); MEAN CORPUSCULAR VOLUME 101.8 FL (78-98); MEAN PLATELET VOLUME 7.8 FL (7.4-10.4); MONOCYTES # (AUTO) 0.9 X10'3 (0-0.9); MONOCYTES % (AUTO) 13.4 % (2-12); NEUTROPHILS # (AUTO) 5.1 X10'3 (1.8-7.7); PLATELET COUNT 71 X10'3 (140-440); RED BLOOD COUNT 2.26 X10'6 (4.70-6.10); RED CELL DISTRIBUTION WIDTH 20.5 % (11.5-14.5); WHITE BLOOD COUNT 6.7 X10'3 (4.5-11.0)
[2021-08-10 06:11] LABS: ALANINE AMINOTRANSFERASE 46 U/L (12-78); ALBUMIN 3.2 G/DL (3.4-5.0); ALKALINE PHOSPHATASE 220 IU/L (46-116); ANION GAP 10 (8-16); ASPARTATE AMINO TRANSFERASE 112 U/L (10-37); BILIRUBIN,TOTAL 8.9 MG/DL (0.1-1.0); BLOOD UREA NITROGEN 28 MG/DL (7-18); BUN/CREATININE RATIO 32.2 (5.4-32.0); CALCIUM 8.4 MG/DL (8.5-10.1); CHLORIDE 101 MMOL/L (99-107); CREATININE 0.87 MG/DL (0.60-1.10); SODIUM 135 MMOL/L (135-145); TOTAL CARBON DIOXIDE 24.2 MMOL/L (24-32); eGFR > 90 ML/MIN
[2021-08-10 06:12] LABS: GLUCOSE 103 MG/DL (70-104); POTASSIUM 5.5 MMOL/L (3.5-5.1); TOTAL PROTEIN 6.5 G/DL (6.4-8.2)
[2021-08-10 06:15] LABS: APTT 43 SECONDS (22-32); D-DIMER 11.24 MG/L FEU (0-0.50)
[2021-08-10 06:20] LABS: C-REACTIVE PROTEIN 1.34 MG/DL (0.0-0.5); ETHANOL < 0.010 GM/DL (0.0-0.010); MAGNESIUM 2.2 MG/DL (1.5-2.4)
--- NOTE | 2021-08-10 06:35 | NUR ---
Discussed with Dr. Mendoza about Bipap orders, and was told to put those orders on hold at this time.
--- NOTE | 2021-08-10 06:44 | NUR ---
PT. LAYING SUPINE IN BED. MOTHER AT BEDSIDE.
[2021-08-10 07:03] LABS: ACANTHOCYTES 1+; ANISOCYTOSIS 3+; PLATELET ESTIMATE DECREASED; SCHISTOCYTES FEW
--- NOTE | 2021-08-10 07:04 | NUR ---
PT. STATES THAT HE WILL TRY TO DO A URINE SAMPLE SOON POSSIBLE.
[2021-08-10] MEDS ORDERED: iohexol 350MG/ML 100ml bottle IV ONE ×2 (07:24→07:43)
[2021-08-10 08:00] LABS: CLARITY,URINE CLEAR (Clear); GLUCOSE, URINE NEGATIVE (Neg); KETONES,URINE TRACE mg/dl (Neg); LEUKOCYTE ESTERASE ,URINE NEGATIVE (Neg); NITRITES, URINE NEGATIVE (Neg); OCCULT BLOOD,URINE NEGATIVE (Neg); PH,URINE 6.5 (4.8-8.0); PROTEIN,URINE NEGATIVE (Neg); UROBILINOGEN,URINE 0.2 E.U/dL (0.2-1.0)
--- NOTE | 2021-08-10 08:08 | NUR ---
returned from CT. CT states that 18g did not work. 18g flushed with no issues uppon arrival back to room. CT placed 20g in right AC. labs drawn.
[2021-08-10 08:10] LABS: URINE AMPHETAMINE SCREEN NEGATIVE (Neg); URINE BARBITUATE SCREEN NEGATIVE (Neg); URINE BENZODIAZEPINES SCREEN NEGATIVE (Neg); URINE CANNABINOID SCREEN NEGATIVE (Neg); URINE COCAINE SCREEN NEGATIVE (Neg); URINE METHADONE SCREEN NEGATIVE (Neg); URINE OPIATE SCREEN NEGATIVE (Neg); URINE PHENCYCLIDINE SCREEN NEGATIVE (Neg)
[2021-08-10 08:11] LABS: COLOR,URINE AMBER (Yellow); UA COLLECTION TYPE URINAL
[2021-08-10 08:19] VITALS: BP 126/77
[2021-08-10] MEDS ORDERED: morphine 4 MG/ML inj SYRINge IV ONE (08:50)
[2021-08-10] MEDS ORDERED: albuterol 2.5 MG/3 ML nebule NEB ONE (08:50)
== END 2021-08-10 10:16 | disposition home or self-care (01) ==
LOC: ER 05:20 → MERGE 05:20 → ER 10:16
DX: K70.31 Alcoholic cirrhosis of liver with ascites (principal)
CPT/HCPCS: 36415; 71045; 71275; 80053; 80305; 80320; 81003; 82140; 83735; 83880; 84484; 85008; 85025; 85379; 85610; 85730; 86140; 93005; 94640; 96361; 96374; 99285; J2270; J7030; Q9967; 94760